=== PATIENT | female | born 1975 | race Caucasian/White ===

== ENCOUNTER → 2020-11-26 | Outpatient (CLI) | payer OTHER ==
[2020-11-27 07:11] LABS: RHEUMATOID ARTHRITIS FACTOR 11.1 IU/mL (0.0-13.9)
[2020-11-27 08:14] LABS: VITAMIN D, 25-HYDROXY 28.4 ng/mL (30.0-100.0)
== END ==
LOC: LAB 12:35
PROVIDERS: Nurse Practitioner Family
DX: M25.50 Pain in unspecified joint (principal); R76.8 Other specified abnormal immunological findings in serum; D89.9 Disorder involving the immune mechanism, unspecified; M79.10 Myalgia, unspecified site
CPT/HCPCS: 36415; 81001; 82550; 82570; 82728; 83520; 84156; 84439; 84443; 85652; 86140; 86200; 86431